=== PATIENT | female | born 1940 | race Caucasian/White ===

== ENCOUNTER 2017-03-10 12:37 | Outpatient (CLI) | payer MEDICARE ==
--- NOTE | 2017-03-10 13:34 | RAD ---
RADIOGRAPH CHEST 2 VIEWS: HISTORY: 76-year-old female with dyspnea. FINDINGS: The thoracic aorta is tortuous and ectatic. There is no evidence of air space density, pneumothorax, or pulmonary edema. There is no cardiomegaly or pleural effusion. IMPRESSION: 1) No acute cardiopulmonary findings. 2) Ectasia of thoracic aorta. arcadio POS: [place]
== END 2017-03-10 12:38 | disposition home or self-care (01) ==
LOC: RAD 12:37
PROVIDERS: ATTEND Internal Medicine Critical Care Medicine
DX: R06.00 Dyspnea, unspecified (principal); I77.810 Thoracic aortic ectasia
CPT/HCPCS: 71046

== ENCOUNTER 2017-04-22 08:44 | Outpatient (CLI) | payer MEDICARE, OTHER ==
--- NOTE | 2017-04-23 15:21 | PFT ---
PATIENT HISTORY: HEIGHT: 64 IN WEIGHT: 220 SMOKER: NA HOW LONG: PACKS PER DAY PRODUCTIVE COUGH: LUNG DISEASE: PHYSICIAN INTERPRETATION FINAL REPORT:: FEV1 is 1.71 liters which is 95% predicted, FVC is 2.28 liters which 86% predicted. There is no change after bronchodilatation. total lung capacity 4.33 which 93% predicted, residual volume was normal. DLCO was normal. IMPRESSION: normal study. Lard Tub Washer: MALISSA Dog Day Care Attendant: MALISSA LANG
== END 2017-04-22 08:45 | disposition home or self-care (01) ==
LOC: CP 08:44
PROVIDERS: ATTEND Internal Medicine Critical Care Medicine
DX: J45.909 Unspecified asthma, uncomplicated (principal)
CPT/HCPCS: 94060; 94727; 94729

== ENCOUNTER 2021-09-03 08:52 | Outpatient (CLI) | payer MEDICARE, OTHER | END 2021-09-03 08:53 | disposition home or self-care (01) | LOC: NM 08:52 | PROVIDERS: ATTEND Psychiatry & Neurology Neurology | DX: R25.1 Tremor, unspecified (principal) | CPT/HCPCS: 78803; A9584 ==

== ENCOUNTER 2022-05-19 09:45 | Inpatient (IN) | payer MEDICARE, OTHER ==
[2022-05-19 10:27] LABS: Hemoglobin 13.2 g/dL (12.0-16.0); Mean Corpuscular HGB CONC 32.7 g/dL (32.0-36.0); Mean Corpuscular Hemoglobin 34.2 pg (27.0-31.0); Mean Platelet Volume 8.4 fL (7.4-10.4); Platelet Count 207 10x3/uL (130-400); RBC Distribution Width 13.6 % (11.5-14.5); Red Blood Cell (RBC) Count 3.86 mill/uL (4.20-5.40)
[2022-05-19 10:38] LABS: ALT (SGPT) 11 U/L (8-55); AST (SGOT) 17 U/L (5-34); Albumin 3.4 g/dL (3.4-4.8); Alkaline Phosphatase 102 U/L (40-110); Anion Gap 11 mmol/L (10-20); BUN (Urea Nitrogen) 12 mg/dL (9.8-20.1); Bilirubin, Total 0.6 mg/dL (0.2-1.2); Calc. Creatinine Clearance 0 mL/min (70-130); Carbon Dioxide 28 mmol/L (23-31); Chloride 106 mmol/L (98-107); Estimated GFR 72; Globulin 2.4 g/dL (2.4-3.5); Glucose 110 mg/dL (83-110); Potassium 4.2 mmol/L (3.5-5.1); Protein, Total 5.8 g/dL (5.8-8.1); Sodium 141 mmol/L (136-145)
[2022-05-19 10:48] LABS: #Eosinphils 0.3 thou/uL (0.0-0.7); #Lymphocytes 1.2 thou/uL (1.20-3.40); #Monocytes 0.5 thou/uL (0.11-0.59); #Neutrophils 5.9 thou/uL (1.40-6.50); %Basophils 0.5 % (0.0-1.0); %Eosinophils 4.3 % (0.0-10.0); %Lymphocytes 14.9 % (21.0-51.0); %Monocytes 6.5 % (0.0-10.0); %Neutrophils 73.9 % (42.0-75.0)
== END 2022-05-19 15:12 | disposition home or self-care (01) | DRG 55 ==
LOC: ERS 09:45 → ERHOLD 13:04
PROVIDERS: ADMIT Family Medicine; ATTEND Family Medicine
DX: C71.9 Malignant neoplasm of brain, unspecified (principal); I48.20 Chronic atrial fibrillation, unspecified; I10 Essential (primary) hypertension; E78.00 Pure hypercholesterolemia, unspecified; M10.9 Gout, unspecified; F32.A Depression, unspecified; H53.2 Diplopia; G51.0 Bell's palsy; Z96.653 Presence of artificial knee joint, bilateral; Z79.899 Other long term (current) drug therapy; Z79.01 Long term (current) use of anticoagulants; Z79.82 Long term (current) use of aspirin; Z85.3 Personal history of malignant neoplasm of breast
CPT/HCPCS: 36416; 70450; 71045; 80053; 83735; 83880; 84484; 85025; 93005